=== PATIENT | female | born 1995 | race Caucasian/White ===

== ENCOUNTER 2017-01-08 05:59 | Outpatient (CLI) | payer OTHER ==
[2017-01-08 07:59] LABS: RED BLOOD COUNT 3.98 M/UL (4.00-5.10); WHITE BLOOD COUNT 10.1 K/UL (4.5-11.0)
[2017-05-07] MEDS ORDERED: LEVAQUIN750 MG PO (19:25)
== END 2017-01-08 06:20 | disposition home or self-care (01) ==
LOC: GENOP 05:59
PROVIDERS: Obstetrics & Gynecology
DX: O36.8130 Decreased fetal movements, third trimester, not applicable or unspecified (principal); Z3A.36 36 weeks gestation of pregnancy
CPT/HCPCS: 36415; 59025; 81001; 85025

== ENCOUNTER 2017-01-12 05:05 | Inpatient (IN) | payer OTHER ==
[~2017-01-12] VITALS: Ht 154.9 cm; Wt 123.8 kg
[2017-01-13 03:35] LABS: HEMOGLOBIN 9.1 gm/dl (12.3-15.3)
[2017-01-14] MEDS ORDERED: COLACE 100MG C100 MG PO (14:15)
[2017-05-07] MEDS ORDERED: LEVAQUIN750 MG PO (19:25)
== END 2017-01-14 13:24 | disposition home or self-care (01) | DRG 765 ==
LOC: GENOP 05:05 → OB 05:19
PROVIDERS: ADMIT Obstetrics & Gynecology
PROC: 3E0234Z Introduction of Serum, Toxoid and Vaccine into Muscle, Percutaneous Approach (ICD-10-PCS; 2017-01-12)
PROC: 10D00Z1 Extraction of Products of Conception, Low, Open Approach (ICD-10-PCS; principal; 2017-01-12 07:47)
DX: O24.12 Pre-existing type 2 diabetes mellitus, in childbirth (principal); O98.82 Other maternal infectious and parasitic diseases complicating childbirth; Z68.43 Body mass index [BMI] 50.0-59.9, adult; E11.65 Type 2 diabetes mellitus with hyperglycemia; Z3A.37 37 weeks gestation of pregnancy; Z37.0 Single live birth; O64.9XX0 Obstructed labor due to malposition and malpresentation, unspecified, not applicable or unspecified; O99.214 Obesity complicating childbirth; E66.01 Morbid (severe) obesity due to excess calories; O75.89 Other specified complications of labor and delivery; O13.4 Gestational [pregnancy-induced] hypertension without significant proteinuria, complicating childbirth; B95.1 Streptococcus, group B, as the cause of diseases classified elsewhere; R60.0 Localized edema; Z79.4 Long term (current) use of insulin; Z79.899 Other long term (current) drug therapy; O99.344 Other mental disorders complicating childbirth; F32.9 Major depressive disorder, single episode, unspecified; Z87.42 Personal history of other diseases of the female genital tract; Z81.8 Family history of other mental and behavioral disorders; Z84.1 Family history of disorders of kidney and ureter; Z83.3 Family history of diabetes mellitus; Z80.49 Family history of malignant neoplasm of other genital organs; Z82.49 Family history of ischemic heart disease and other diseases of the circulatory system; Z79.84 Long term (current) use of oral hypoglycemic drugs; Z23 Encounter for immunization
CPT/HCPCS: 36415; 74000; 82800; 82962; 85014; 85018; 90715; C9113; J0690; J1815; J1817; J2250; J2300; J2590; J2765; J7120

== ENCOUNTER → 2020-11-15 | Outpatient (CLI) | payer BC, OTHER ==
[~2020-11-15] MED LIST: COLACE 100MG C100 MG PO; LEVAQUIN750 MG PO; PHENERGAN 25 MG25 M1 PO
[2020-11-15 18:22] LABS: HEMOGLOBIN 12.9 gm/dl (12.3-15.3); RED BLOOD COUNT 4.62 M/UL (4.00-5.10); WHITE BLOOD COUNT 11.5 K/UL (4.5-11.0)
[2020-11-15 18:38] LABS: BUN/CREATININE RATIO 15 (0-10)
[2020-11-17 08:13] LABS: HBSAG SCREEN Negative (Negative); HEP A AB, IGM Negative (Negative); HEP B CORE AB, IGM Negative (Negative); HEP C VIRUS AB <0.1 (0.0-0.9)
== END ==
LOC: LAB 17:24
PROVIDERS: Nurse Practitioner Family
DX: R00.0 Tachycardia, unspecified (principal); F41.9 Anxiety disorder, unspecified
CPT/HCPCS: 36415; 80053; 80061; 80074; 82550; 82607; 83036; 84439; 84443; 84481; 84550; 85025; 85652; 86140

== ENCOUNTER → 2020-12-14 | Outpatient (CLI) | payer BC, OTHER ==
[2020-12-14 09:43] LABS: GLUCOSE,CSF 103 mg/dL (50-80); TOTAL PROTEIN,CSF 28 mg/dL (20-45)
[2020-12-14 10:28] LABS: WBC (AUTOMATED 3 10^3 (0-5)
[2020-12-14 10:31] LABS: WBC (AUTOMATED 1 10^3 (0-5)
== END ==
LOC: RAD 11-29 09:30
PROVIDERS: Ophthalmology
DX: G93.2 Benign intracranial hypertension (principal)
CPT/HCPCS: 82945; 84157; 87015; 87070; 87116; 87205; 87210; 87252; 89051

== ENCOUNTER → 2021-01-29 | Outpatient (CLI) | payer BC ==
[2021-01-29 18:41] LABS: HEMOGLOBIN 13.2 gm/dl (12.3-15.3); RED BLOOD COUNT 4.75 M/UL (4.00-5.10); WHITE BLOOD COUNT 10.4 K/UL (4.5-11.0)
[2021-01-29 18:57] LABS: BUN/CREATININE RATIO 16 (0-10)
[2021-01-31 08:16] LABS: VITAMIN D, 25-HYDROXY 35.5 ng/mL (30.0-100.0)
[2021-01-31 10:16] LABS: HBSAG SCREEN Negative (Negative); HEP A AB, IGM Negative (Negative); HEP B CORE AB, IGM Negative (Negative); HEP C VIRUS AB <0.1 (0.0-0.9)
[2021-01-31 14:12] LABS: ANTI-CENTROMERE B ANTIBODIES <0.2 AI (0.0-0.9); ANTI-DNA (DS) AB QN 3 IU/mL (0-9); ANTI-JO-1 <0.2 AI (0.0-0.9); ANTICHROMATIN ANTIBODIES 1.3 AI (0.0-0.9); ANTIRIBOSOMAL P ANTIBODIES 0.5 AI (0.0-0.9); ANTISCLERODERMA-70 ANTIBODIES <0.2 AI (0.0-0.9); RNP ANTIBODIES <0.2 AI (0.0-0.9); SJOGREN'S ANTI-SS-A 0.3 AI (0.0-0.9); SJOGREN'S ANTI-SS-B <0.2 AI (0.0-0.9); SMITH ANTIBODIES <0.2 AI (0.0-0.9); SMITH/RNP ANTIBODIES 0.2 AI (0.0-0.9)
[2021-02-06 11:27] LABS: HLA B 27 DISEASE ASSOCIATION Negative (.)
== END ==
LOC: LAB 17:20
PROVIDERS: Nurse Practitioner Family
DX: E55.9 Vitamin D deficiency, unspecified (principal); M45.0 Ankylosing spondylitis of multiple sites in spine
CPT/HCPCS: 80053; 80074; 81374; 82607; 83036; 83516; 84550; 85025; 85652; 86140; 86200; 86431

== ENCOUNTER → 2021-02-18 | Outpatient (CLI) | payer BC | LOC: RAD 11:01 | DX: R06.02 Shortness of breath (principal) | CPT/HCPCS: 71046 ==

== ENCOUNTER → 2021-03-11 | Outpatient (CLI) | payer BC | LOC: HEART 5 09:12 | DX: R07.9 Chest pain, unspecified (principal); R06.02 Shortness of breath | CPT/HCPCS: 94010 ==

== ENCOUNTER → 2021-03-20 | Outpatient (CLI) | payer BC ==
[2021-03-21 08:14] LABS: RHEUMATOID ARTHRITIS FACTOR <10.0 IU/mL (0.0-13.9)
[2021-03-21 09:14] LABS: VITAMIN D, 25-HYDROXY 30.3 ng/mL (30.0-100.0)
== END ==
LOC: LAB 09:20
PROVIDERS: Nurse Practitioner Family
DX: D89.9 Disorder involving the immune mechanism, unspecified (principal); M25.50 Pain in unspecified joint; R76.8 Other specified abnormal immunological findings in serum; M79.10 Myalgia, unspecified site; R53.83 Other fatigue
CPT/HCPCS: 82728; 83520; 84439; 84443; 85652; 86140; 86200; 86431

== ENCOUNTER → 2021-07-24 | Outpatient (CLI) | payer BC ==
[2021-07-24 07:44] LABS: HEMOGLOBIN 12.8 gm/dl (12.3-15.3); RED BLOOD COUNT 4.61 M/UL (4.00-5.10); WHITE BLOOD COUNT 7.5 K/UL (4.5-11.0)
[2021-07-24 07:59] LABS: BUN/CREATININE RATIO 18 (0-10)
== END ==
LOC: LAB 06:59
PROVIDERS: Nurse Practitioner
DX: M25.50 Pain in unspecified joint (principal)
CPT/HCPCS: 36415; 80053; 80061; 82607; 83036; 84443; 85025; 85652; 86140

== ENCOUNTER → 2021-08-27 | Outpatient (CLI) | payer BC | LOC: EXRD 14:50 | DX: U07.1 COVID-19 (principal) | CPT/HCPCS: 71046 ==

== ENCOUNTER → 2021-10-04 | Outpatient (CLI) | payer BC | LOC: NM 10:00 → ECHO 11:45 → NM 13:00 → HEART 5 10-14 11:00 | DX: R06.02 Shortness of breath (principal); R07.9 Chest pain, unspecified; R30.0 Dysuria | CPT/HCPCS: ECHO; 81001; 87086; 93270; 93306 ==

== ENCOUNTER → 2021-10-09 | Outpatient (CLI) | payer BC | LOC: DTC 08:29 | DX: E11.65 Type 2 diabetes mellitus with hyperglycemia (principal); Z71.3 Dietary counseling and surveillance | CPT/HCPCS: G0109 ==

== ENCOUNTER → 2021-10-24 | Outpatient (CLI) | payer BC ==
[2021-10-24 18:43] LABS: HEMOGLOBIN 13.2 gm/dl (12.3-15.3); RED BLOOD COUNT 4.78 M/UL (4.00-5.10); WHITE BLOOD COUNT 10.3 K/UL (4.5-11.0)
[2021-10-24 18:52] LABS: BUN/CREATININE RATIO 10 (0-10)
[2021-10-26 09:14] LABS: COMPLEMENT C3, SERUM 185 mg/dL (82-167); COMPLEMENT C4, SERUM 39 mg/dL (12-38)
[2021-10-26 13:09] LABS: ANTI-DSDNA ANTIBODIES 3 IU/mL (0-9)
[2021-10-28 10:10] LABS: DRVVT 33.9 sec (0.0-47.0); LUPUS REFLEX INTERPRETATION Comment: (.)
== END ==
LOC: LAB 16:55
PROVIDERS: Internal Medicine
DX: M54.9 Dorsalgia, unspecified (principal); H47.033 Optic nerve hypoplasia, bilateral; H54.50 Low vision, one eye, unspecified eye; M32.10 Systemic lupus erythematosus, organ or system involvement unspecified; R21 Rash and other nonspecific skin eruption; R53.83 Other fatigue
CPT/HCPCS: 36415; 80053; 82570; 84156; 85025; 85613; 85652; 85732; 86140; 86160; 86225

== ENCOUNTER → 2021-10-24 | Outpatient (CLI) | payer BC | LOC: KOH-I 12:39 | DX: M54.50 Low back pain, unspecified (principal) | CPT/HCPCS: 72110 ==

== ENCOUNTER → 2021-12-04 | Outpatient (CLI) | payer BC, OTHER ==
[~2021-12-04] VITALS: Ht 154.9 cm; Wt 126.6 kg
== END ==
LOC: OPSV 13:00
DX: R21 Rash and other nonspecific skin eruption (principal); M32.10 Systemic lupus erythematosus, organ or system involvement unspecified; R53.83 Other fatigue; H54.50 Low vision, one eye, unspecified eye; H47.033 Optic nerve hypoplasia, bilateral; Z68.43 Body mass index [BMI] 50.0-59.9, adult
CPT/HCPCS: 96365; J0490; J7030

== ENCOUNTER → 2021-12-18 | Outpatient (CLI) | payer BC ==
[~2021-12-18] VITALS: Ht 154.9 cm; Wt 126.6 kg
== END ==
LOC: OPSV 14:00
DX: Z53.9 Procedure and treatment not carried out, unspecified reason (principal)
CPT/HCPCS: 96365; J0490; J7030

== ENCOUNTER → 2021-12-26 | Outpatient (CLI) | payer BC ==
[2021-12-26 18:11] LABS: HEMOGLOBIN 13.1 gm/dl (12.3-15.3); RED BLOOD COUNT 4.82 M/UL (4.00-5.10); WHITE BLOOD COUNT 11.1 K/UL (4.5-11.0)
[2021-12-26 18:32] LABS: BUN/CREATININE RATIO 12 (0-10)
== END ==
LOC: LAB 17:44
PROVIDERS: Nurse Practitioner Family
DX: R60.9 Edema, unspecified (principal)
CPT/HCPCS: 80053; 81001; 82570; 84156; 85025

== ENCOUNTER → 2022-01-06 | Outpatient (CLI) | payer BC ==
[~2022-01-06] VITALS: Ht 154.9 cm; Wt 126.6 kg
== END ==
LOC: OPSV 10:34
DX: M32.10 Systemic lupus erythematosus, organ or system involvement unspecified (principal)
CPT/HCPCS: 96361; 96365; J0490; J7030

== ENCOUNTER → 2022-01-31 | Outpatient (CLI) | payer BC ==
[~2022-01-31] MED LIST changes: +AJOVY AUTO225 MG/1.5 SQ; +AJOVY225 MG/1.5 SQ; +BENLYSTA 120 M120 MG IV; +BUSPIRONE HCL5 MG PO; +CYMBALTA 30 MG30 MG PO; +DEXCOM G61 EAC1 MC; +HUMALOG100 UNIT/1 SC; +LANTUS SOL100 UNIT/1 SQ; +METOPROLOL SUC100 MG PO; +NURTEC ODT75 MG PO; +OZEMPIC0.25 MG/0. SQ; +PLAQUENIL200 MG PO
[2022-01-31 06:58] LABS: HEMOGLOBIN 13.4 gm/dl (12.3-15.3); RED BLOOD COUNT 4.89 M/UL (4.00-5.10); WHITE BLOOD COUNT 9.6 K/UL (4.5-11.0)
[2022-01-31 07:13] LABS: BUN/CREATININE RATIO 13 (0-10)
== END ==
LOC: LAB 06:18
PROVIDERS: Internal Medicine Cardiovascular Disease
DX: I47.1 Supraventricular tachycardia (principal); R00.2 Palpitations
CPT/HCPCS: 36415; 71046; 80048; 85025

== ENCOUNTER 2022-02-04 09:32 | Outpatient (CLI) | payer BC ==
[~2022-02-04] VITALS: Ht 152.4 cm; Wt 124.7 kg
[~2022-02-04 09:32] MED LIST changes: -AJOVY AUTO225 MG/1.5 SQ; -AJOVY225 MG/1.5 SQ; -BENLYSTA 120 M120 MG IV; -BUSPIRONE HCL5 MG PO; -CYMBALTA 30 MG30 MG PO; -DEXCOM G61 EAC1 MC; -HUMALOG100 UNIT/1 SC; -LANTUS SOL100 UNIT/1 SQ; -METOPROLOL SUC100 MG PO; -NURTEC ODT75 MG PO; -OZEMPIC0.25 MG/0. SQ; -PLAQUENIL200 MG PO
[2022-02-04] MEDS ORDERED: AJOVY AUTO225 MG/1.5 SQ (10:21)
[2022-02-04] MEDS ORDERED: BUSPIRONE HCL5 MG PO (10:27)
[2022-02-04] MEDS ORDERED: DEXCOM G61 EAC1 MC (10:27)
[2022-02-04] MEDS ORDERED: HUMALOG100 UNIT/1 SC (10:28)
[2022-02-04] MEDS ORDERED: METOPROLOL SUC100 MG PO (10:29)
[2022-02-04] MEDS ORDERED: PLAQUENIL200 MG PO (10:29)
[2022-02-04] MEDS ORDERED: OZEMPIC0.25 MG/0. SQ (10:30)
[2022-02-04] MEDS ORDERED: NURTEC ODT75 MG PO (10:30)
[2022-02-04] MEDS ORDERED: LANTUS SOL100 UNIT/1 SQ (10:31)
[2022-02-04] MEDS ORDERED: CYMBALTA 30 MG30 MG PO (10:31)
[2022-02-04] MEDS ORDERED: AJOVY225 MG/1.5 SQ (18:30)
[2022-02-04] MEDS ORDERED: BENLYSTA 120 M120 MG IV (18:31)
== END 2022-02-05 12:10 | disposition home or self-care (01) ==
LOC: PROG CARE 09:32 → CATH 09:32 → PROG CARE 18:04 → CATH 18:04
DX: I47.1 Supraventricular tachycardia (principal); R00.2 Palpitations; E66.9 Obesity, unspecified; E11.65 Type 2 diabetes mellitus with hyperglycemia; M32.9 Systemic lupus erythematosus, unspecified; Z68.43 Body mass index [BMI] 50.0-59.9, adult; Z86.16 Personal history of COVID-19; Z91.040 Latex allergy status; Z88.8 Allergy status to other drugs, medicaments and biological substances; Z88.5 Allergy status to narcotic agent; Z79.4 Long term (current) use of insulin
CPT/HCPCS: 82962; 84703; 93005; 93609; 93620; 93621; 93623; 99152; 99153; C1730; C1733; C1766; J0461; J1644; J2250; J3010; J7040; J7050

== ENCOUNTER → 2022-02-07 | Outpatient (CLI) | payer BC ==
[~2022-02-07] VITALS: Ht 154.9 cm; Wt 126.6 kg
[~2022-02-07] MED LIST changes: +AJOVY AUTO225 MG/1.5 SQ; +AJOVY225 MG/1.5 SQ; +BENLYSTA 120 M120 MG IV; +BUSPIRONE HCL5 MG PO; +CYMBALTA 30 MG30 MG PO; +DEXCOM G61 EAC1 MC; +HUMALOG100 UNIT/1 SC; +LANTUS SOL100 UNIT/1 SQ; +METOPROLOL SUC100 MG PO; +NURTEC ODT75 MG PO; +OZEMPIC0.25 MG/0. SQ; +PLAQUENIL200 MG PO
== END ==
LOC: OPSV 13:47
DX: M32.10 Systemic lupus erythematosus, organ or system involvement unspecified (principal)
CPT/HCPCS: 96360; 96365; J0490; J7030

== ENCOUNTER → 2022-03-07 | Outpatient (CLI) | payer BC ==
[~2022-03-07] VITALS: Ht 154.9 cm; Wt 126.6 kg
== END ==
LOC: OPSV 14:00
DX: M32.10 Systemic lupus erythematosus, organ or system involvement unspecified (principal)
CPT/HCPCS: 96360; 96365; J0490; J7030

== ENCOUNTER 2022-03-30 18:43 | Emergency (ER) | payer BC ==
[2022-03-30 19:50] LABS: HEMOGLOBIN 14.5 gm/dl (12.3-15.3); RED BLOOD COUNT 5.16 M/UL (4.00-5.10)
[2022-03-30 20:03] LABS: BUN/CREATININE RATIO 10 (0-10)
[2022-03-30] MEDS ORDERED: CIPRO500 MG PO (22:39)
[2022-03-30] MEDS ORDERED: ZOFRAN ODT 4 MG4 MG PO (22:39)
[2022-03-30] MEDS ORDERED: BENTYL 20MG TAB20 MG PO (22:39)
[2022-03-30] MEDS ORDERED: METRONIDAZOLE500 MG PO (22:39)
== END 2022-03-30 22:51 | disposition home or self-care (01) ==
LOC: ER1 18:43
PROVIDERS: Physician Assistant
DX: K52.9 Noninfective gastroenteritis and colitis, unspecified (principal); E11.9 Type 2 diabetes mellitus without complications; Z88.5 Allergy status to narcotic agent; Z88.8 Allergy status to other drugs, medicaments and biological substances; Z91.040 Latex allergy status
CPT/HCPCS: 80053; 81001; 83605; 83690; 84703; 85025; 87040; 93005; 96374; 99284; J2405; Q9967

== ENCOUNTER → 2022-04-10 | Outpatient (CLI) | payer BC ==
[~2022-04-10] VITALS: Ht 154.9 cm; Wt 126.6 kg
[~2022-04-10] MED LIST changes: +BENTYL 20MG TAB20 MG PO; +CIPRO500 MG PO; +METRONIDAZOLE500 MG PO; +ZOFRAN ODT 4 MG4 MG PO
== END ==
LOC: OPSV 15:00
DX: M32.10 Systemic lupus erythematosus, organ or system involvement unspecified (principal); E86.0 Dehydration
CPT/HCPCS: 96361; 96365; J0490; J7030